=== PATIENT | female | born 1980 | race Native Hawaiian/Other Pacific Islander ===

== ENCOUNTER 2016-10-30 16:09 | Emergency (ER) | payer BC ==
[~2016-10-30] VITALS: Ht 157.5 cm; Wt 70.8 kg
[2016-10-30 18:52] VITALS: BP 128/82
== END 2016-10-30 18:57 | disposition home or self-care (01) ==
LOC: ED 16:09
DX: M54.5 Low back pain (principal); N83.209 Unspecified ovarian cyst, unspecified side
CPT/HCPCS: 96372; 99283; J1885